=== PATIENT | male | born 1980 | race Caucasian/White ===

== ENCOUNTER 2020-01-05 17:37 | Inpatient (IN) ==
[2020-01-05] MEDS ORDERED: BENTYL PO PRN (21:21)
[2020-01-05] MEDS ORDERED: ROBAXIN PO PRN (21:21)
[2020-01-05] MEDS ORDERED: ATARAX PO PRN (21:21)
[2020-01-05 21:36] LABS: URINE SOURCE CLEAN CATCH
[2020-01-05 21:41] LABS: BILIRUBIN URINE NEGATIVE (NEGATIVE); BLOOD URINE NEGATIVE (NEGATIVE); COLOR YELLOW; GLUCOSE URINE NEGATIVE (NEGATIVE); KETONE URINE NEGATIVE (NEGATIVE); LEUKOCYTES URINE TRACE (NEGATIVE); NITRITE URINE NEGATIVE (NEGATIVE); PH URINE 6.5; PROTEIN URINE TRACE mg/dL (NEGATIVE); SP GRAVITY URINE 1.025; TURBIDITY URINE CLEAR (CLEAR); UROBILINOGEN URINE NORMAL (NORMAL)
[2020-01-05] MEDS ORDERED: PHENOBARBITAL IV PRN (21:41)
[2020-01-05] MEDS ORDERED: TYLENOL PO PRN (21:41)
[2020-01-05] MEDS ORDERED: D5W 1,000 ML IV PRN (21:41)
[2020-01-05] MEDS ORDERED: SENOKOT PO PRN (21:41)
[2020-01-05] MEDS ORDERED: NICODERM PATCH TD PRN (21:41)
[2020-01-05] MEDS ORDERED: DULCOLAX PR PRN (21:41)
[2020-01-05] MEDS ORDERED: ZOFRAN IV PRN (21:41)
[2020-01-05] MEDS ORDERED: MOTRIN PO PRN (21:41)
[2020-01-05] MEDS ORDERED: SEROQUEL PO PRN (21:41)
[2020-01-05] MEDS ORDERED: ZOFRAN IM PRN (21:41)
[2020-01-05] MEDS ORDERED: MAALOX PLUS LIQUID PO PRN (21:41)
[2020-01-05] MEDS ORDERED: IMODIUM PO PRN ×2 (21:41)
[2020-01-05] MEDS ORDERED: DESYREL PO PRN (21:41)
[2020-01-05 21:50] LABS: UR AMPHETAMINES QUAL NONE DETECTED (NONE DETECT); UR BARBITUATES QUAL NONE DETECTED (NONE DETECT); UR BENZODIAZEPIN QUAL NONE DETECTED (NONE DETECT); UR CANNABINOIDS QUAL NONE DETECTED (NONE DETECT); UR COCAINE QUAL NONE DETECTED (NONE DETECT); UR EPITHELIAL CELLS <10 /HPF (<10); UR METHADONE QUAL NONE DETECTED (NONE DETECT); UR METHAMPHETAMINE QUAL NONE DETECTED (NONE DETECT); UR OPIATES QUAL NONE DETECTED (NONE DETECT); UR OXYCODONE QUAL NONE DETECTED (NONE DETECT); UR PCP QUAL NONE DETECTED (NONE DETECT); UR PROPOXYPHENE QUAL NONE DETECTED (NONE DETECT); UR TCA QUAL NONE DETECTED (NONE DETECT); URINE BACTERIA 1+ /HPF; URINE CASTS NONE SEEN; URINE CRYSTALS URIC ACID PRESENT; URINE WBC <10 /HPF (<10); URINE YEAST NONE SEEN
[2020-01-05 21:53] LABS: BASO# 0.03 X1000 (0.0-0.2); BASO% 0.4 % (0.0-0.8); EOS# 0.07 X1000 (0.0-0.7); EOS% 0.9 % (0.0-10.0); HEMATOCRIT 43.1 % (42.0-52.0); HEMOGLOBIN 14.9 g/dL (14.0-18.0); IMM GRAN# 0.03 X1000 (0.0-0.04); IMM GRAN% 0.4 % (0.0-0.5); MCH 31.3 PG (27-31); MCHC 34.6 g/dL (33-37); MCV 90.5 FL (81-99); MONO% 6.3 % (1.7-9.3); MPV 9.9 FL (7.4-10.4); NEUT# 4.62 X1000 (1.4-6.5); PLT 258 X1000 (130-400); RBC 4.76 XMIL (4.7-6.1); RDW 12.1 % (11.5-14.5); WBC 7.95 X1000 (4.8-10.8)
[2020-01-05] MEDS ORDERED: TUBERSOL ID ONE (22:00)
[2020-01-05] MEDS ORDERED: LIBRIUM PO ONE (22:00)
[2020-01-05 22:06] LABS: AMYLASE 51 U/L (20-200); LIPASE 42 U/L (13-60)
[2020-01-05 22:08] LABS: AGAP 12; ALBUMIN 3.9 g/dL (3.5-5.0); ALKALINE PHOSPHATASE 51 U/L (32-122); BUN 15 mg/dL (8-22); CALCIUM 8.1 mg/dL (8.8-10.2); CHLORIDE 101 mmol/L (98-107); COSMO 278; ESTIMATED GFR > 60; GLUCOSE 117 mg/dL (70-104); GOT 57 U/L (10-34); GPT 31 U/L (10-44); POTASSIUM 3.8 mmol/L (3.5-5.1); SODIUM 138 mmol/L (136-145); TCO2 25 mmol/L (25-35); TOTAL PROTEIN 6.3 g/dL (6.3-8.3)
[2020-01-05] MEDS: ZOFRAN ODT PO PRN (22:27)
[2020-01-06] MEDS: PROTONIX PO SCH (06:00)
[2020-01-06] MEDS ORDERED: M.V.I.-12 10 ML, FOLIC ACID 1 MG, MAGNESIUM SULFATE 1 GM, THIAMINE 100 MG in NS 1,000 ML IV ONE (09:00)
[2020-01-06] MEDS: LIBRIUM PO SCH ×3 (10:09→19:52)
[2020-01-06] MEDS: VITAMIN B-1 PO SCH (10:10)
[2020-01-06] MEDS: FOLIC ACID PO SCH (10:10)
[2020-01-06] MEDS: THERA M PLUS PO SCH (10:10)
--- NOTE | 2020-01-06 12:33 | HISTORY AND PHYSICAL ---
CHIEF COMPLAINT: Nausea and vomiting. HISTORY OF PRESENT ILLNESS: The patient is a 39-year-old male who presented to [facility] secondary to nausea, vomiting, abdominal pain, tremors, myalgias. Notes that he has been heavily drinking. He has been trying to stop, but has been unable to do so. SOCIAL HISTORY: He is single. 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 Currently lives at home in [place]. 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 MEDICATIONS: Prilosec, Cande. ALLERGIES: No known drug allergies. REVIEW OF SYSTEMS: CINA score is elevated at 23 secondary to nausea, vomiting, abdominal pain, dry heaves, tremors with his arms extended. He has a headache, moderate to severe. He has frequent sweating. Moderately anxious, unable to sit still. He is agitated, frequently moving about. Denies any auditory or visual hallucinations. SUBSTANCE ABUSE HISTORY: In December, he went to [facility] for outpatient counseling. Notes that alcohol has caused work-related problems. It has also caused fatty liver. States he has been drinking heavily since coming back from [facility] last year. Started drinking at age 22, currently drinks a fifth of a day. Started marijuana at 24, rarely uses. Tried stimulants in college. Tried cocaine at 24, has not used in 2 months. Prior to that, he had been using every 3 to 4 days. Started nicotine at age 22, currently smokes 2 packs a day. FAMILY HISTORY: Noncontributory. PHYSICAL EXAMINATION: VITAL SIGNS: Reviewed and stable. GENERAL: The patient is awake, alert, oriented. Currently in no respiratory distress. HEENT: Normocephalic. NECK: Supple. CARDIOVASCULAR: Regular rate. CHEST: Clear, nonlabored. ABDOMEN: Soft, nondistended, nontender. EXTREMITIES: Moves all extremities. NEUROLOGIC: No focal changes. SKIN: Warm, dry. No rashes. ASSESSMENT: 1. Nausea, vomiting. 2. Abdominal pain. 3. Myalgias. 4. Paroxysmal sweating. 5. Tremors. 6. Alcohol abuse, withdrawal, and stabilization. PLAN: We will continue the patient in the hospital, place him on high-dose Librium taper, continue counseling, and monitor for withdrawal. Further orders as needed. cc: Derrick Solares MD
[2020-01-07] MEDS: LIBRIUM PO SCH ×4 (01:07→23:23)
[2020-01-07] MEDS: PROTONIX PO SCH (06:12)
[2020-01-07] MEDS: THERA M PLUS PO SCH (09:52)
[2020-01-07] MEDS: FOLIC ACID PO SCH (09:52)
[2020-01-07] MEDS: VITAMIN B-1 PO SCH (09:52)
[2020-01-07] MEDS: NICOTINE GUM BUCCAL PRN ×2 (12:13→15:51)
[2020-01-08] MEDS: PROTONIX PO SCH (06:18)
--- NOTE | 2020-01-08 07:19 | PROGRESS NOTE ---
DATE: 01/07/2020 SUBJECTIVE: Patient notes he is feeling better. Tremors have improved. PHYSICAL EXAMINATION: Vital Signs: Reviewed. Blood pressure is stable. O2 saturation 98% on room air. He is afebrile. General: He is awake, alert. He is in no distress. HEENT: Normocephalic. Neck: Supple. Cardiovascular: Regular rate. Chest: Clear, nonlabored. Abdomen: Soft, nondistended, nontender. Extremities: Moves all extremities. Neurologic: No focal changes. ASSESSMENT: 1. Nausea and vomiting. 2. Abdominal pain. 3. Myalgias. 4. Paresthesias. 5. Paroxysmal sweating. 6. Alcohol abuse withdrawal and stabilization. PLAN: We are going to continue patient in the hospital. Continue high dose Librium taper. Continue [*] cc: Derrick Solares MD
[2020-01-08] MEDS: VITAMIN B-1 PO SCH (10:04)
[2020-01-08] MEDS: FOLIC ACID PO SCH (10:04)
[2020-01-08] MEDS: LIBRIUM PO SCH ×3 (10:04→21:06)
[2020-01-08] MEDS: THERA M PLUS PO SCH (10:04)
--- NOTE | 2020-01-08 22:21 | PROGRESS NOTE ---
DATE: 01/08/2020 SUBJECTIVE: Patient notes he is feeling a lot better. Muscle aches and sweating have improved. Denies any fevers or chills. PHYSICAL: Vital Signs: Reviewed. He is afebrile. Blood pressure stable. Pulse regular. HEENT: Normocephalic. Neck: Supple. Cardiovascular: Regular rate. Chest: Clear. Abdomen: Soft. Extremities: Moves all extremities. Neuro: No changes. ASSESSMENT: 1. Nausea, vomiting. 2. Abdominal pain. 3. Myalgias. 4. Paresthesias. 5. Paroxysmal sweating. 6. Alcohol abuse withdrawal and stabilization. PLAN: We will continue patient in the hospital. Continue to follow. Further orders as needed. cc: Derrick Solares MD
[2020-01-09] MEDS: PROTONIX PO SCH (06:25)
[2020-01-09] MEDS ORDERED: REVIA PO SCH (09:00)
[2020-01-09] MEDS ORDERED: LIBRIUM PO SCH (09:00)
[2020-01-09] MEDS: FOLIC ACID PO SCH (09:31)
[2020-01-09] MEDS: VITAMIN B-1 PO SCH (09:31)
[2020-01-09] MEDS: THERA M PLUS PO SCH (09:31)
[2020-01-09] MEDS: ZOFRAN ODT PO PRN (12:05)
[2020-01-09 12:10] VITALS: BP 124/88
--- NOTE | 2020-01-11 18:20 | DISCHARGE SUMMARY ---
ADMISSION DATE: 01/05/2020 DISCHARGE DATE: 01/09/2020 DISCHARGE DIAGNOSIS: 1. Nausea, vomiting, abdominal pain. 2. Reflux. 3. Opiate abuse withdrawal and stabilization. 4. Alcohol abuse withdrawal and stabilization. CONSULTATIONS: None. PROCEDURES: None. BRIEF HOSPITAL COURSE: Patient was admitted to the hospital, treated the usual fashion, placed on high-dose Librium taper. Counseling was performed each day by myself. On discharge patient is awake, alert, oriented, in no current respiratory distress. Overall is feeling better. Has completely weaned off Librium. DISPOSITION: Patient will be transitioned to [facility]. Has been weaned off all weaned off all controlled substances and will follow. cc: Derrick Solares MD
== END 2020-01-09 12:46 | disposition home or self-care (01) | DRG 392 ==
LOC: P.DIRADM 17:50
PROVIDERS: ADMIT Family Medicine; ATTEND Family Medicine